=== PATIENT | female | born 1960 | race Caucasian/White ===

== ENCOUNTER 2017-01-17 09:07 | Emergency (ER) | payer OTHER ==
--- NOTE | 2017-01-17 09:16 | EDM.PDOC ---
ED HPI LOWER BACK PAIN/INJURY - General Chief Complaint: Back Pain or Injury Stated Complaint: BACK Time Seen by Provider: 01/17/17 09:16 Source of Information: Reports: Patient, RN, RN notes reviewed History Limitations: Reports: No limitations - History of Present Illness INITIAL COMMENTS - FREE TEXT/NARRATIVE: Arrives to ER by POV with c/o severe low back pain radiating to the left buttock and proximal posterior left thigh. Pt reports recent onset of low back pain a few weeks ago without any specific injury or activity trigger. She had been seeking treatment from a chiropractor and physical therapist, and had used some motrin. She was improved and the this week the chiropractor told her she wouldn't need to come back. Then yesterday she lifted a small child while at work, and reports that she was very careful to use correct lifting technique, but still she felt a sudden pop in her low back (pt points and indicates the left S.I. joint) and experienced severe radiating pain. Pt rates the pain 9+/ 10. She returned to the chiropractor today and had very brief relief, and the chiropractor advised her to go to the ER. She had low back xrays taken at the chiropractor, but she doesn't know what the results were. She denies any saddle numbness, tingling, motor weakness, or loss of bowel or bladder control. Timing/Duration: Reports: Constant Location: Reports: lower, paraspinal (left (S.I. 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: Reports: NSAIDS, Other (see below) (chiropractic, P.T.) - Related Data Allergies/ADRs: Allergies Allergy/AdvReac Type Severity Reaction Status Date / Time fexofenadine [From Deedee] Allergy Rash Verified 01/17/17 09:30 Home Meds: Home Meds Fluticasone Propionate [Flonase] 1 spray NASBOTH DAILY 01/17/17 [History] Lisinopril [Prinivil] 10 mg PO DAILY 01/17/17 [History] Loratadine [Claritin] 10 mg PO DAILY 01/17/17 [History] Pseudoephedrine HCl [Sudafed 12 Hour] 120 mg PO DAILY 01/17/17 [History] Past Medical History HEENT History: Reports: Allergic rhinitis Cardiovascular History: Reports: Hypertension Social & Family History - Family History Family Medical History: Noncontributory - Living Situation & Occupation Living situation: Reports: with family Occupation: employed ED ROS GENERAL - Review of Systems Review Of Systems: ROS reveals no pertinent complaints other than HPI. ED EXAM,LOWER BACK PAIN/INJURY - Physical Exam Exam: See Below Exam Limited By: No limitations General Appearance: alert, WD/WN, no apparent distress Throat/Mouth: Normal voice, No airway compromise Head: atraumatic, normocephalic Neck: normal inspection Respiratory/Chest: no respiratory distress Cardiovascular: normal peripheral pulses GI/Abdominal: normal bowel sounds, soft, non tender, no organomegaly, no distention, no abnormal bruit, no mass Back Exam: decreased range of motion, muscle spasm, paraspinal tenderness ( lumbar, lumbosacral), other (focally tender at the left S.I. joint). No: CVA tenderness (L), CVA tenderness (R), vertebral tenderness Extremities: normal inspection, normal range of motion, non-tender, no pedal edema, normal capillary refill Neurological: alert, normal mood/affect, normal dorsiflexion, CN II-XII intact, normal plantar flexion, no motor/sensory deficits, oriented x 3, abnormal gait ( antalgic gait favoring left lower ext.) Psychiatric: normal affect, normal mood Skin Exam: Warm, Dry, Intact, Normal color, No rash Course - Vital Signs Last Recorded V/S: Last Vital Signs Temp 36.3 C 01/17/17 09:23 Pulse 89 01/17/17 09:23 Resp 18 01/17/17 09:23 BP 119/57 L 01/17/17 09:23 Pulse Ox 100 01/17/17 09:23 - Orders/Labs/Meds Orders: Active Orders 24 hr Category Date Time Status DRUG SCREEN URINE BIORAD [URCHEM] Stat Lab 01/17/17 10:07 Ordered UA W/MICROSCOPIC [URIN] Stat Lab 01/17/17 10:07 Ordered Cyclobenzaprine [Flexeril] Med 01/17/17 10:22 Once 10 mg PO ONETIME ONE Dexamethasone Med 01/17/17 10:21 Once 12 mg IM ONETIME ONE HYDROmorphone [Dilaudid] Med 01/17/17 10:22 Once 1 mg IM ONETIME ONE Medication Orders Cyclobenzaprine HCl (Flexeril) 10 mg PO ONETIME ONE Stop: 01/17/17 10:23 Dexamethasone (Dexamethasone) 12 mg IM ONETIME ONE Stop: 01/17/17 10:22 Hydromorphone HCl (Dilaudid) 1 mg IM ONETIME ONE Stop: 01/17/17 10:23 Meds: Medications Generic Name Dose Route Start Last Admin Trade Name Freq PRN Reason Stop Dose Admin Cyclobenzaprine HCl 10 mg 01/17/17 10:22 Flexeril PO 01/17/17 10:23 ONETIME ONE Dexamethasone 12 mg 01/17/17 10:21 Dexamethasone IM 01/17/17 10:22 ONETIME ONE Hydromorphone HCl 1 mg 01/17/17 10:22 Dilaudid IM 01/17/17 10:23 ONETIME ONE - Re-Assessments/Exams Free Text/Narrative Re-Assessment/Exam: 01/17/17 10:33 I explained the exam findings, working diagnosis, and any potential or additionally considered diagnoses, treatment/disposition plan, self/home care instructions, rational for the diagnosis/treatment plan/disposition plan, anticipated course of illness, and follow up instructions to the pt. I explained the rational for not obtaining further imaging studies at this time, given Hx of no injury, and focal S.I. joint pain, it is deemed most reasonable to get the pain and spasms under control, and if symptoms persist after a few days she should f/u with her PCP and consider further evaluation, possible MRI, or referral to a specialist. The pt acknowledges understanding of the above explanation(s), and of the signs and symptoms which should prompt the return of the pt to the ER should those or any other concerning symptoms develop. Departure - Departure Time of Disposition: 10:38 Disposition: Home, Self-Care 01 Condition: fair Clinical Impression: Sacroiliac joint dysfunction of left side, Lumbar paraspinal muscle spasm Sciatica Qualifiers: Laterality: left Qualified Code(s): M54.32 - Sciatica, left side Instructions: Sacroiliac Joint Dysfunction, Sciatica, Pain Medicine Instructions, [id number] Forms: ED Department Discharge Additional Instructions: Use alternating heat and ice packs to area of pain. Light activity as tolerated. Avoid lifting, bending, or twisting at the waist. Rx: Cyclobenzaprine 10mg *Do not drive or work while under the influence of this medication. Rx: Hydrocodone APAP 5mg/325mg *Do not drive or work while under the influence of this medication. Rx: Decadron 4mg Follow up in clinic Friday with your primary doctor. - My Orders Last 24 Hours: My Active Orders 01/17/17 10:07 DRUG SCREEN URINE BIORAD [URCHEM] Stat UA W/MICROSCOPIC [URIN] Stat 01/17/17 10:21 Dexamethasone 12 mg IM ONETIME ONE 01/17/17 10:22 Cyclobenzaprine [Flexeril] 10 mg PO ONETIME ONE HYDROmorphone [Dilaudid] 1 mg IM ONETIME ONE - Assessment/Plan Last 24 Hours: My Active Orders 01/17/17 10:07 DRUG SCREEN URINE BIORAD [URCHEM] Stat UA W/MICROSCOPIC [URIN] Stat 01/17/17 10:21 Dexamethasone 12 mg IM ONETIME ONE 01/17/17 10:22 Cyclobenzaprine [Flexeril] 10 mg PO ONETIME ONE HYDROmorphone [Dilaudid] 1 mg IM ONETIME ONE
[2017-01-17] MEDS ORDERED: Dexamethasone 4 MG/ML SDV IM ONE (10:21)
[2017-01-17] MEDS ORDERED: Cyclobenzaprine 10 MG Tab PO ONE (10:22)
[2017-01-17] MEDS ORDERED: HYDROmorphone 1 MG/ML Syringe IM ONE (10:22)
[2017-01-17 11:40] VITALS: BP 131/63
== END 2017-01-17 10:59 | disposition home or self-care (01) ==
LOC: DL.ED 09:07
DX: M54.32 Sciatica, left side (principal); M62.830 Muscle spasm of back; M53.3 Sacrococcygeal disorders, not elsewhere classified; I10 Essential (primary) hypertension; Z88.8 Allergy status to other drugs, medicaments and biological substances; Z79.899 Other long term (current) drug therapy
CPT/HCPCS: 96372; 99283; A9270; J1100; J1170